=== PATIENT | female | born 1970 | race Caucasian/White ===

== ENCOUNTER 2017-11-12 03:51 | Emergency (ER) | payer MEDICARE, MEDICAID ==
[~2017-11-12] VITALS: Ht 175.3 cm; Wt 110.4 kg
[~2017-11-12 03:51] MED LIST: NO HOME MEDS; ONDA4TAB6 PO
[2017-11-12] MEDS ORDERED: ipratropium/albuterol 3ml nebule NEB ONE (04:15)
[2017-11-12] MEDS ORDERED: BENZ-38 PO (04:25)
[2017-11-12] MEDS ORDERED: ALBU8.5H8 IH (04:25)
[2017-11-12] MEDS ORDERED: AZIT-63 PO (04:25)
[2017-11-12 05:18] VITALS: BP 130/88
[2017-11-13] MEDS ORDERED: GUAI473S11 PO (13:49)
== END 2017-11-12 05:20 | disposition home or self-care (01) ==
LOC: ER 03:52
DX: J40 Bronchitis, not specified as acute or chronic (principal); R05 Cough; R06.02 Shortness of breath; K21.9 Gastro-esophageal reflux disease without esophagitis; Z87.891 Personal history of nicotine dependence; Z88.0 Allergy status to penicillin; Z88.5 Allergy status to narcotic agent; Z79.899 Other long term (current) drug therapy
CPT/HCPCS: 71046; 93005; 94640; 94760; 99284

== ENCOUNTER 2017-11-13 13:08 | Emergency (ER) | payer MEDICARE, MEDICAID ==
[~2017-11-13] VITALS: Ht 175.3 cm; Wt 81.0 kg
[~2017-11-13 13:08] MED LIST changes: +ALBU8.5H8 IH; +AZIT-63 PO; +BENZ-38 PO
[2017-11-13] MEDS ORDERED: ipratropium/albuterol 3ml nebule NEB ONE (13:20)
[2017-11-13] MEDS ORDERED: GUAI473S11 PO (13:49)
[2017-11-13 13:59] VITALS: BP 145/102
== END 2017-11-13 13:50 | disposition home or self-care (01) ==
LOC: ER 13:09
DX: R07.81 Pleurodynia (principal); R05 Cough; K21.9 Gastro-esophageal reflux disease without esophagitis; Z88.0 Allergy status to penicillin; Z88.5 Allergy status to narcotic agent; Z79.899 Other long term (current) drug therapy
CPT/HCPCS: 94640; 94760; 99282; 99283

== ENCOUNTER 2018-10-11 20:23 | Emergency (ER) | payer MEDICARE, MEDICAID ==
[~2018-10-11] VITALS: Ht 175.3 cm; Wt 84.1 kg
[~2018-10-11 20:23] MED LIST changes: -AZIT-63 PO; -BENZ-38 PO
[2018-10-11] MEDS ORDERED: ketorolac trometh inj. 60 MG/2 ML VIAL IM ONE (21:50)
[2018-10-11] MEDS ORDERED: HYDROcodone/acetaminophen 10/325mg tab PO ONE (21:50)
[2018-10-11] MEDS ORDERED: diazepam 5mg tablet PO ONE (21:50)
[2018-10-11 23:02] VITALS: BP 120/68
== END 2018-10-11 23:03 | disposition home or self-care (01) ==
LOC: ER 20:23
DX: S39.012A Strain of muscle, fascia and tendon of lower back, initial encounter (principal); K21.9 Gastro-esophageal reflux disease without esophagitis; Z88.0 Allergy status to penicillin; Z88.5 Allergy status to narcotic agent; Z79.899 Other long term (current) drug therapy; X50.3XXA Overexertion from repetitive movements, initial encounter; Y93.89 Activity, other specified; Y92.89 Other specified places as the place of occurrence of the external cause; Y99.8 Other external cause status
CPT/HCPCS: 72100; 96372; 99283; J1885

== ENCOUNTER 2018-10-13 09:51 | Emergency (ER) | payer MEDICARE, MEDICAID ==
[~2018-10-13] VITALS: Ht 175.3 cm; Wt 90.0 kg
[2018-10-13 10:32] VITALS: BP 140/77
[2018-10-13] MEDS ORDERED: LIDOcaine 5% patch TP SCH (11:35)
== END 2018-10-13 11:58 | disposition home or self-care (01) ==
LOC: ER 09:52
DX: M54.5 Low back pain (principal); M25.562 Pain in left knee; K21.9 Gastro-esophageal reflux disease without esophagitis; Z88.6 Allergy status to analgesic agent; Z88.0 Allergy status to penicillin
CPT/HCPCS: 99282

== ENCOUNTER 2020-12-16 12:51 | Emergency (ER) | payer BC, MEDICAID ==
[~2020-12-16] VITALS: Ht 172.7 cm; Wt 113.0 kg
[~2020-12-16 12:51] MED LIST changes: +CLIN150C8 PO
[2020-12-16 12:54] VITALS: BP 163/89
== END 2020-12-16 16:40 | disposition left against medical advice (07) ==
LOC: ER 12:52
DX: R13.10 Dysphagia, unspecified (principal); Z53.21 Procedure and treatment not carried out due to patient leaving prior to being seen by health care provider

== ENCOUNTER 2022-05-04 16:45 | Emergency (ER) | payer BC, MEDICAID ==
[~2022-05-04] VITALS: Ht 175.3 cm; Wt 88.6 kg
[~2022-05-04 16:45] MED LIST changes: +ALBU8.5H17 IH; -ALBU8.5H8 IH
[2022-05-04 17:54] LABS: BASOPHILS % (AUTO) 0.4 % (0-1); EOSINOPHILS # (AUTO) 0.1 X10'3 (0-0.9); EOSINOPHILS % (AUTO) 2.7 % (0-6); HEMATOCRIT 42.6 % (35.0-45.0); HEMOGLOBIN 14.1 g/dl (12.0-16.0); LYMPHOCYTES # (AUTO) 0.9 X10'3 (1.1-4.8); LYMPHOCYTES % (AUTO) 19.6 % (21-51); MEAN CORPUSCULAR HEMOGLOBIN 27.5 PG (27.0-31.0); MEAN CORPUSCULAR HGB CONC 33.2 g/dL (33.0-36.5); MEAN CORPUSCULAR VOLUME 82.8 FL (78-98); MEAN PLATELET VOLUME 7.9 FL (7.4-10.4); MONOCYTES # (AUTO) 0.6 X10'3 (0-0.9); MONOCYTES % (AUTO) 13.7 % (2-12); NEUTROPHILS % (AUTO) 63.6 % (42-75); PLATELET COUNT 236 X10'3 (140-440); RED BLOOD COUNT 5.15 X10'6 (4.20-5.60); RED CELL DISTRIBUTION WIDTH 14.6 % (11.5-14.5); WHITE BLOOD COUNT 4.6 X10'3 (4.5-11.0)
[2022-05-04 17:57] LABS: ALANINE AMINOTRANSFERASE 40 U/L (12-78); ALBUMIN 3.3 G/DL (3.4-5.0); ALBUMIN/GLOBULIN RATIO 0.9 (1.1-1.5); ALKALINE PHOSPHATASE 130 IU/L (46-116); ANION GAP 8 (8-16); ASPARTATE AMINO TRANSFERASE 43 U/L (10-37); BILIRUBIN,TOTAL 0.4 MG/DL (0.1-1.0); BLOOD UREA NITROGEN 9 MG/DL (7-18); CALCIUM 8.6 MG/DL (8.5-10.1); CHLORIDE 105 MMOL/L (99-107); CREATININE 0.75 MG/DL (0.40-0.90); GLUCOSE 97 MG/DL (70-104); POTASSIUM 3.9 MMOL/L (3.5-5.1); SODIUM 137 MMOL/L (135-145); TOTAL CARBON DIOXIDE 24.4 MMOL/L (24-32); TOTAL PROTEIN 7.1 G/DL (6.4-8.2); eGFR 81 ML/MIN
[2022-05-04] MEDS ORDERED: ketorolac trometh. 30mg/ml inj. IM ONE (21:15)
[2022-05-04 21:43] VITALS: BP 124/86
[2022-05-04] MEDS ORDERED: CEPH-585 PO (22:15)
[2022-05-04] MEDS ORDERED: TAM75C PO (22:53)
== END 2022-05-04 23:27 | disposition home or self-care (01) ==
LOC: ER 16:47
DX: B34.9 Viral infection, unspecified (principal); Z20.822 Contact with and (suspected) exposure to COVID-19; J11.1 Influenza due to unidentified influenza virus with other respiratory manifestations; R53.83 Other fatigue; R06.02 Shortness of breath; R50.9 Fever, unspecified; R05.9 Cough, unspecified; R51.9 Headache, unspecified; K21.9 Gastro-esophageal reflux disease without esophagitis; Z87.440 Personal history of urinary (tract) infections; Z88.0 Allergy status to penicillin; Z88.8 Allergy status to other drugs, medicaments and biological substances; Z79.2 Long term (current) use of antibiotics; Z79.899 Other long term (current) drug therapy
CPT/HCPCS: 36415; 71046; 80053; 85025; 87502; 87503; 87635; 96372; 99284; C9803; J1885

== ENCOUNTER 2022-09-18 03:57 | Emergency (ER) | payer BC, MEDICAID ==
[~2022-09-18] VITALS: Ht 175.3 cm; Wt 90.0 kg
[~2022-09-18 03:57] MED LIST changes: +CEPH-585 PO
[2022-09-18 04:04] VITALS: BP 131/82
[2022-09-18] MEDS ORDERED: SULF1TAB49 PO (07:24)
== END 2022-09-18 07:36 | disposition home or self-care (01) ==
LOC: ER 03:58
DX: L02.01 Cutaneous abscess of face (principal); K21.9 Gastro-esophageal reflux disease without esophagitis; Z88.0 Allergy status to penicillin; Z88.5 Allergy status to narcotic agent
CPT/HCPCS: 99283

== ENCOUNTER 2022-12-26 21:40 | Emergency (ER) | payer BC, MEDICAID ==
[~2022-12-26] VITALS: Ht 175.3 cm; Wt 93.2 kg
[2022-12-26] MEDS ORDERED: nitroGLYCERIN 0.4mg SUBLingual tab SL ONE (21:45)
[2022-12-26] MEDS ORDERED: LORazepam 2 mg/ml vial IM ONE (21:55)
[2022-12-26] MEDS ORDERED: glucagon, human recombinant 1mg kit IV ONE (22:15)
[2022-12-26] MEDS ORDERED: normal saline 1000ml 1,000 ML IV ONE (22:15)
[2022-12-26] MEDS ORDERED: LORazepam 2 mg/ml vial IV ONE (22:15)
[2022-12-26] MEDS ORDERED: ondansetron/PF 4mg/2ml inj IV ONE (22:15)
[2022-12-26 23:48] VITALS: BP 157/98
== END 2022-12-26 23:49 | disposition home or self-care (01) ==
LOC: ER 21:40
DX: T18.108A Unspecified foreign body in esophagus causing other injury, initial encounter (principal); K21.9 Gastro-esophageal reflux disease without esophagitis; Z88.0 Allergy status to penicillin; Z88.5 Allergy status to narcotic agent; Z79.899 Other long term (current) drug therapy; Z79.1 Long term (current) use of non-steroidal anti-inflammatories (NSAID)
CPT/HCPCS: 96361; 96372; 96374; 96375; 99284; J1610; J2060; J2405; J7030

== ENCOUNTER 2025-03-03 21:59 | Emergency (ER) | payer BC, MEDICAID ==
[~2025-03-03] VITALS: Ht 175.3 cm; Wt 114.6 kg
[~2025-03-03 21:59] MED LIST changes: -ALBU8.5H17 IH; +APIX5TAB3 PO; -CEPH-585 PO; -CLIN150C8 PO; +NICO-731 TOP; -NO HOME MEDS; +OMEP20CA15 PO; -ONDA4TAB6 PO
--- NOTE | 2025-03-04 01:50 | Physician Documentation ---
History of Present Illness ~ Chief Complaint: Leg Pain Stated Complaint: LEGS SWELLING Time Seen by MD: 23:29 OK to notify your PCP?: Yes Primary Medical Doctor: JAQUELINE JOHNSON IN Source: patient, RN/, RN notes reviewed Mode of Arrival: POV, Dropped Off Exam Limitations: no limitations, other HPI 54 year old female with history of pulmonary embolism presents to the emergency room for complaints of leg swelling that has been present for four days. She complains of bilateral leg swelling and states that it is greater on the right than the left. She identifies her pain as 5/10. She states she had gone to the emergency department two days ago and was prescribed Keflex. At this time she was given an ultrasound and told she has no new clots.She states she is unaware of how this began denying any recent travel. She denies any shortness of breath or chest pain. Tetanus witin 5 years: No Medication Reconciliation Allergies: Coded Allergies: Penicillins (Verified Allergy, Unknown, 03/29/24) hydromorphone (Verified Allergy, Unknown, 03/29/24) Scheduled Apixaban (Eliquis), 10 MG PO BID Cephalexin Monohydrate (Cephalexin), 1 CAP PO Q8H, (Reported) Nicotine (Nicotine Patch), 1 PATCH TOP DAILY Discontinued Medications Omeprazole (Omeprazole), 1 CAP PO DAILY Discontinued Reason: patient no longer taking Past Medical History Past Medical History: Pulmonary Embolism, Diverticulitis, GERD, UTI Past Surgical History: no surgical history Smoking Status: Current every day smoker Alcohol Use: Rarely Drug Use: none Lives with: S/O Lives In: Home Review of Systems All Other Systems at this time: Reviewed and Negative ROS As stated above in the HPI, otherwise all systems are reviewed and negative. Physical Exam Vital Signs: RN Vital Signs have been reviewed: Yes, Temperature: 98.4, Source: Oral, Heart Rate: 72, Respiratory Rate: 16, BP: 131/84, Pulse Oximetry: 96, Weight: 114.600 Oxygen Flow Rate: 0 Pulse Oximetry Reflects: adequate oxygenation Physical Exam General: The patient is well developed, well nourished, nontoxic appearing and is in no acute distress. Skin: [place], warm and dry with no rashes. HEENT: Head was normocephalic and atraumatic. Eyes - pupils equal, round, reactive to light and accommodation. Extraocular movements were intact. Conjunctivae were nonicteric. Ears - bilateral tympanic membranes were normal. The mouth and oropharynx were clear with moist mucous membranes. There were no pharyngeal exudates or erythema. Neck: Supple and nontender. There was no jugular venous distention, lymphadenopathy, thyromegaly or masses. Chest: Clear to auscultation bilaterally without wheezes, rales or rhonchi. No accessory muscle use. No dullness to percussion. Heart: Rate regular and rhythmic. S1, S2. No murmurs. Palpation of the chest wall was normal. No rubs or thrills. Abdomen: Soft, nontender and nondistended. Positive bowel sounds. No guarding or rebound. No hepatosplenomegaly or palpable masses. Extremities: Lower extremity is red hot and swollen greater on left side than right. The patient moves all extremities. Pulses were equal and symmetric. Neurologic: Cranial nerves II-XII were intact. Sensation was intact to light touch throughout. Motor strength was 5/5 in all four extremities. Deep tendon reflexes were intact in both upper and lower extremities. Psychologic: The patient was oriented to person, place and time. The patient demonstrated appropriate judgement and insight. Progress Results/Orders Results/Orders Medications Received in ER Medications (Trade) Dose Ordered Sig/Valeria Route PRN Reason Start Time Stop Time Status Last Admin Dose Admin Vancomycin HCl 250 ml @ 166 mls/hr ONCE ONCE IV 03/04/25 02:00 03/04/25 03:30 DC 03/04/25 02:28 166 MLS/HR Vital Signs 03/03/25 03/03/25 03/03/25 03/04/25 22:04 22:56 22:59 00:38 Temp 98.2 98.4 Pulse 85 80 72 Resp 16 18 16 16 B/P (MAP) 148/86 149/82 (104) 131/84 (100) Pulse Ox 96 96 96 O2 Flow Rate 0 0 0 03/04/25 03/04/25 03/04/25 01:56 04:04 06:00 Temp 98.0 Pulse 72 74 78 Resp 16 16 B/P (MAP) 128/82 (97) 126/74 (91) 128/72 (90) Pulse Ox 98 98 98 O2 Flow Rate 0 0 0 Laboratory Tests Test 03/04/25 02:30 03/04/25 03:31 White Blood Count 7.0 Red Blood Count 5.11 Hemoglobin 14.5 Hematocrit 43.3 Mean Corpuscular Volume 84.7 Mean Corpuscular Hemoglobin 28.3 Mean Corpuscular Hemoglobin Concent 33.5 Red Cell Distribution Width 14.7 H Platelet Count 273 Mean Platelet Volume 8.4 Neutrophils (%) (Auto) 58.3 Lymphocytes (%) (Auto) 28.2 Monocytes (%) (Auto) 7.7 Eosinophils (%) (Auto) 5.3 Basophils (%) (Auto) 0.5 Neutrophils # (Auto) 4.1 Lymphocytes # (Auto) 2.0 Monocytes # (Auto) 0.5 Eosinophils # (Auto) 0.4 Basophils # (Auto) 0.0 CBC Comment Sodium Level 140 Potassium Level 4.0 Chloride Level 105 Carbon Dioxide Level 29.3 Anion Gap 6 L Blood Urea Nitrogen 8 Creatinine 0.68 Estimated GFR/1.73 m2 90 BUN/Creatinine Ratio 11.8 Glucose Level 92 Lactic Acid Level 1.0 Calcium Level 9.4 Magnesium Level 2.1 Troponin I High Sensitivity 7 Albumin 3.4 Procalcitonin < 0.05 Chemistry Comments Urine Specimen Description Cln catch midstream Urine Color Yellow Urine Clarity Clear Urine pH 6.0 Urine Specific [place] 1.025 Urine Protein Negative Urine Glucose (UA) Negative Urine Ketones Negative Urine Occult Blood Negative Urine Nitrite Negative Urine Bilirubin Small Urine Urobilinogen 2.0 H Urine Leukocyte Esterase Negative Urine Culture Indicated Not ind Volume Urine Centrifuged 10 ml Urine Comment Microbiology Date/Time Source Procedure Growth Status 03/04/25 02:30 Blood Forearm Left Blood Culture - Preliminary NEGATIVE (LESS THAN 24 HOURS) Resulted EKG/XRAY/CT/US/VASC/MRI EKG : Additional Comment [facility] Test Date: 2025-03-04 Test Time: 02:00:11 Pat Name: MARICARMEN MEDINADONALDBON Department: EMERGENCY ROOM Room: 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 Tr Olvera Measurements Intervals [place] Rate: 66 P: 41 [place]: 149 QRS: 61 QRSD: 95 T: 36 QT: 404 QTc: 424 Interpretive Statements Sinus rhythm Baseline wander in lead(s) I Electronically Signed On 03-04-2025 2:07:[address] Tr Olvera Please click the below link to view image of tracing. EKG Date and Time:03/04/25199 Electronically Signed by: TR OLVERA MD Date and Time: 03/04/25206 Chest X-Ray : Additional Comments Clinical History SEPSIS Comparison None Technique: frontal chest x-ray Without Contrast MARICARMEN LUNDY, [id number] Findings: Heart - normal lungs - no consolidation. bones - no acute fracture. Other- Impression: 1. No acute cardiopulmonary disease This report was electronically signed by Sveta Anthony MD on 03/04/2025 2:22:11 AM. Electronically Signed by:SVETA ANTHONY MD Date & Time: 03/04/25223 Departure Time of Disposition: 06:12 Disposition: 01 HOME / SELF CARE / HOMELESS Impression: Primary Impression: Bilateral lower leg cellulitis Additional Impressions: History of pleural effusion Peripheral edema Condition: Stable Discharge Instructions: Cellulitis, Adult, [id number] Referrals: NO PRIMARY CARE PROVIDER (PCP) Signature Scribe Signature: Scribed for Tr Olvera MD by Barbara Giles . 03/04/25 02:05 Attestation: The note accurately reflects work and decisions made by me.Tr Olvera MD 03/04/25 01:50 TR OLVERA MD March 04, 2025 01:50 BARBARA ALLEN March 04, 2025 02:05
--- NOTE | 2025-03-04 02:03 | ELECTROCARDIOGRAPH REPORT ---
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 Kathryn Ayers Measurements Intervals [place] Rate: 66 P: 41 [place]: 149 QRS: 61 QRSD: 95 T: 36 QT: 404 QTc: 424 Interpretive Statements Sinus rhythm Baseline wander in lead(s) I Electronically Signed On 03-04-2025 2:07:[address] Kathryn Ayers Please click the below link to view image of tracing.
--- NOTE | 2025-03-04 02:24 | RADIOLOGY REPORT ---
Clinical History SEPSIS Comparison None Technique: frontal chest x-ray Without Contrast MARICARMEN LUNDY, [id number] Findings: Heart - normal lungs - no consolidation. bones - no acute fracture. Other- Impression: 1. No acute cardiopulmonary disease This report was electronically signed by Sveta High MD on 03/04/2025 2:22:11 AM.
[2025-03-04] MEDS: vancomycin/NS 1 GM ADD-VANTAGE 250 ML IV ONE (02:28)
[2025-03-04] MEDS ORDERED: CEPH500C2 PO (02:42)
[2025-03-04 02:54] LABS: BASOPHILS % (AUTO) 0.5 % (0-1); EOSINOPHILS # (AUTO) 0.4 X10'3 (0-0.9); EOSINOPHILS % (AUTO) 5.3 % (0-6); HEMATOCRIT 43.3 % (35.0-45.0); HEMOGLOBIN 14.5 g/dl (12.0-16.0); LYMPHOCYTES % (AUTO) 28.2 % (21-51); MEAN CORPUSCULAR HEMOGLOBIN 28.3 PG (27.0-31.0); MEAN CORPUSCULAR HGB CONC 33.5 g/dL (33.0-36.5); MEAN CORPUSCULAR VOLUME 84.7 FL (78-98); MEAN PLATELET VOLUME 8.4 FL (7.4-10.4); MONOCYTES # (AUTO) 0.5 X10'3 (0-0.9); MONOCYTES % (AUTO) 7.7 % (2-12); NEUTROPHILS # (AUTO) 4.1 X10'3 (1.8-7.7); NEUTROPHILS % (AUTO) 58.3 % (42-75); PLATELET COUNT 273 X10'3 (140-440); RED BLOOD COUNT 5.11 X10'6 (4.20-5.60); RED CELL DISTRIBUTION WIDTH 14.7 % (11.5-14.5)
[2025-03-04 03:04] LABS: ALBUMIN 3.4 G/DL (3.4-5.0); ANION GAP 6 (8-16); BLOOD UREA NITROGEN 8 MG/DL (7-18); BUN/CREATININE RATIO 11.8 (10.0-20.0); CALCIUM 9.4 MG/DL (8.5-10.1); CHLORIDE 105 MMOL/L (99-107); CREATININE 0.68 MG/DL (0.40-0.90); GLUCOSE 92 MG/DL (70-104); MAGNESIUM 2.1 MG/DL (1.5-2.4); SODIUM 140 MMOL/L (135-145); TOTAL CARBON DIOXIDE 29.3 MMOL/L (24-32); eCRCL 97 ML/MIN; eGFR 90 ML/MIN
[2025-03-04] MEDS ORDERED: iohexol 350MG/ML 100ml bottle IV ONE (03:21)
[2025-03-04 04:13] LABS: BILIRUBIN,URINE SMALL (Neg); CLARITY,URINE CLEAR (Clear); COLOR,URINE YELLOW (Yellow); GLUCOSE, URINE NEGATIVE (Neg); KETONES,URINE NEGATIVE (Neg); LEUKOCYTE ESTERASE ,URINE NEGATIVE (Neg); NITRITES, URINE NEGATIVE (Neg); OCCULT BLOOD,URINE NEGATIVE (Neg); PROTEIN,URINE NEGATIVE (Neg)
[2025-03-04 04:15] LABS: UA COLLECTION TYPE CLN CATCH MIDSTREAM
--- NOTE | 2025-03-04 05:16 | RADIOLOGY REPORT ---
INDICATION: dependent edema COMPARISON: None TECHNIQUE: CT of the bilateral lower extremity was performed with contrast. Volume transverse images were obtained and reconstructed in multiple planes using bone and soft tissue algorithms. Radiation Dose Information: CT Dose: CTDI volume is 20.0 mGy. Dose-length product is 1234.6 mGy*cm FINDINGS: The alignment is normal. The joint spaces are normal. There is no fracture, dislocation or aggressive osseous lesion. There is no joint effusion. Prominent varicosities are present in bilateral thighs. 1.5 cm prominent lymph node in the inferior right medial groin/ proximal thigh ; indeterminate and po ssibly reactive. IMPRESSION: No acute or suspicious findings. Prominent varicosities are present in bilateral thighs. 1.5 cm prominent lymph node in the inferior right medial groin/ proximal thigh ; indeterminate and po ssibly reactive.
[2025-03-04] MEDS ORDERED: DOXY-1 PO (06:13)
[2025-03-04 06:14] VITALS: BP 128/78; PULSE 82; RESP 16; TEMP 98; O2SAT 98
[2025-03-04] MEDS: DOXYCYCLINE 100MG CAPSULE PO STA (06:22)
== END 2025-03-04 06:23 | disposition home or self-care (01) ==
LOC: ER 21:59
DX: L03.115 Cellulitis of right lower limb (principal); L03.116 Cellulitis of left lower limb; K21.9 Gastro-esophageal reflux disease without esophagitis; F17.200 Nicotine dependence, unspecified, uncomplicated; Z88.0 Allergy status to penicillin; Z88.5 Allergy status to narcotic agent
CPT/HCPCS: 36415; 71045; 73701; 80048; 81003; 83605; 83735; 84145; 84484; 85025; 87040; 93005; 96365; 96366; 99285; J3370; Q9967

== ENCOUNTER 2025-04-16 09:20 | Emergency (ER) | payer BC, MEDICAID ==
[~2025-04-16] VITALS: Ht 175.3 cm; Wt 115.4 kg
[~2025-04-16 09:20] MED LIST changes: +CEPH500C2 PO; -OMEP20CA15 PO
[2025-04-16 09:26] VITALS: TEMP 98.7
[2025-04-16 10:13] LABS: BILIRUBIN,URINE NEGATIVE (Neg); CLARITY,URINE CLEAR (Clear); COLOR,URINE YELLOW (Yellow); GLUCOSE, URINE NEGATIVE (Neg); KETONES,URINE NEGATIVE (Neg); LEUKOCYTE ESTERASE ,URINE NEGATIVE (Neg); OCCULT BLOOD,URINE TRACE-INTACT (Neg); PROTEIN,URINE NEGATIVE (Neg); UROBILINOGEN,URINE 0.2 E.U/dL (0.2-1.0)
[2025-04-16 10:19] LABS: BASOPHILS # (AUTO) 0.1 X10'3 (0-0.2); EOSINOPHILS # (AUTO) 0.3 X10'3 (0-0.9); EOSINOPHILS % (AUTO) 4.1 % (0-6); HEMATOCRIT 45.1 % (35.0-45.0); HEMOGLOBIN 15.6 g/dl (12.0-16.0); LYMPHOCYTES % (AUTO) 30.6 % (21-51); MEAN CORPUSCULAR HEMOGLOBIN 28.8 PG (27.0-31.0); MEAN CORPUSCULAR HGB CONC 34.5 g/dL (33.0-36.5); MEAN CORPUSCULAR VOLUME 83.5 FL (78-98); MEAN PLATELET VOLUME 8.4 FL (7.4-10.4); MONOCYTES # (AUTO) 0.4 X10'3 (0-0.9); MONOCYTES % (AUTO) 6.2 % (2-12); NEUTROPHILS # (AUTO) 3.7 X10'3 (1.8-7.7); NEUTROPHILS % (AUTO) 58.1 % (42-75); PLATELET COUNT 236 X10'3 (140-440); RED BLOOD COUNT 5.41 X10'6 (4.20-5.60); RED CELL DISTRIBUTION WIDTH 14.5 % (11.5-14.5); WHITE BLOOD COUNT 6.4 X10'3 (4.5-11.0)
[2025-04-16 10:21] LABS: ALBUMIN 3.5 G/DL (3.4-5.0); ANION GAP 10 (8-16); BLOOD UREA NITROGEN 10 MG/DL (7-18); BUN/CREATININE RATIO 12.5 (10.0-20.0); C-REACTIVE PROTEIN 0.51 MG/DL (0.0-0.5); CALCIUM 9.5 MG/DL (8.5-10.1); CHLORIDE 106 MMOL/L (99-107); GLUCOSE 90 MG/DL (70-104); POTASSIUM 4.1 MMOL/L (3.5-5.1); SODIUM 144 MMOL/L (135-145); TOTAL CARBON DIOXIDE 28.3 MMOL/L (24-32); eCRCL 82 ML/MIN; eGFR 74 ML/MIN
[2025-04-16 10:22] LABS: UA COLLECTION TYPE CLN CATCH MIDSTREAM
[2025-04-16 10:28] LABS: WBC,URINE 0-4 /HPF (0-4)
[2025-04-16 10:29] LABS: BACTERIA,URINE 1+ /HPF (Neg); RBC,URINE 0-2 /HPF (0-2); SQUAMOUS EPITHELIAL CELL,UR MANY /LPF (FEW)
[2025-04-16 10:30] LABS: MUCUS STRANDS NONE SEEN /LPF (Neg)
[2025-04-16 10:33] LABS: TRANSITIONAL EPI CELLS,URINE FEW /HPF; YEAST FEW /HPF (NEGATIVE)
[2025-04-16 10:58] LABS: NITRITES, URINE NEGATIVE (Neg)
--- NOTE | 2025-04-16 11:14 | Physician Documentation ---
History of Present Illness ~ Chief Complaint: Wound Stated Complaint: CELLULITIS IN FEET Time Seen by MD: 10:12 Primary Medical Doctor: JAQUELINE JOHNSON IN Mode of Arrival: POV, Ambulatory HPI Patient is seen today with concern for recurrent cellulitis of the lower extremities. Patient states that she is having chronic swelling of her bilateral lower extremities and was treated about a month ago for cellulitis. Patient states she is still having swelling of her lower extremities in his concerned for some pain of her lower extremities and she is concerned for recurrent cellulitis. Patient denies any fevers or chills or chest pain or shortness of breath or abdominal pain or nausea, vomiting, diarrhea. Patient has no other concern or complaint at this time. Tetanus within 5 years?: No Medication Reconciliation Allergies: Coded Allergies: Penicillins (Verified Allergy, Unknown, 04/16/25) hydromorphone (Verified Allergy, Unknown, 04/16/25) Scheduled Apixaban (Eliquis), 10 MG PO BID Cephalexin Monohydrate (Cephalexin), 1 CAP PO Q8H, (Reported) Nicotine (Nicotine Patch), 1 PATCH TOP DAILY Past Medical History Past Medical History: Pulmonary Embolism, Diverticulitis, GERD, UTI Past Surgical History: no surgical history Alcohol Use: Rarely Drug Use: none Lives with: S/O Lives In: Home Review of Systems Constitutional: Denies: chills, fever, weakness Eyes: Denies: pain, blurred vision ENT: Denies: ear pain, nose pain, throat pain, mouth pain Respiratory: Denies: cough, shortness of breath Cardiovascular: Denies: chest pain, palpitations Gastrointestinal: Denies: abdominal pain, nausea, vomiting Genitourinary: Denies: burning, dysuria Female Genitalia: Denies: vaginal discharge, pelvic pain Neurological: Denies: headache, dizziness Musculoskeletal: Denies: pain, swelling Integumentary: Denies: rash, lesions Allergic/Immunologic: Denies: hives, itching Hematologic/Lymphatic: Denies: no symptoms reported Psychiatric: Denies: depression, anxiety Physical Exam Vital Signs: Temperature: 98.7, Source: Temporal, Heart Rate: 74, Respiratory Rate: 16, BP: 160/100, Pulse Oximetry: 98, Weight: 115.400 Oxygen Flow Rate: 0 Physical Exam General: Awake and Alert, no acute distress. HEENT: Conjunctiva pink, Sclera clear, Mucus Membranes moist. Neck: Supple without masses and tenderness. Resp: Unlabored. Lungs clear to auscultation bilaterally. Heart: Regular Rate and rhythm, normal S1 and S2 without murmur, rub or gallop. Abdomen: Soft and non tender no organomegaly Extremities: No cyanosis,clubbing. Patient does have bilateral lower extremity 2+ pitting edema with chronic appearing hemosiderin deposits bilaterally. I do not appreciate any warmth or erythema and no sign of cellulitis. Skin: Warm and Dry. Progress Results/Orders Results/Orders Orders - MARY CARDONA PAC Culture Blood (04/16/25 09:29) Completed Orders - MARY CARDONA PAC Cbc/Diff (04/16/25 09:29) Procalcitonin (04/16/25 09:29) BMP (04/16/25 09:29) Lacticsepsis (04/16/25 09:29) C-Reactive Protein (04/16/25 09:29) Ua W/Microscopic, Cult If Ind (04/16/25 10:05) Vital Signs 04/16/25 04/16/25 09:26 10:20 Temp 98.7 Pulse 84 74 Resp 18 16 B/P (MAP) 168/93 160/100 (120) Pulse Ox 96 98 O2 Flow Rate 0 Laboratory Tests Test 04/16/25 09:57 04/16/25 10:05 White Blood Count 6.4 Red Blood Count 5.41 Hemoglobin 15.6 Hematocrit 45.1 H Mean Corpuscular Volume 83.5 Mean Corpuscular Hemoglobin 28.8 Mean Corpuscular Hemoglobin Concent 34.5 Red Cell Distribution Width 14.5 Platelet Count 236 Mean Platelet Volume 8.4 Neutrophils (%) (Auto) 58.1 Lymphocytes (%) (Auto) 30.6 Monocytes (%) (Auto) 6.2 Eosinophils (%) (Auto) 4.1 Basophils (%) (Auto) 1.0 Neutrophils # (Auto) 3.7 Lymphocytes # (Auto) 2.0 Monocytes # (Auto) 0.4 Eosinophils # (Auto) 0.3 Basophils # (Auto) 0.1 CBC Comment Sodium Level 144 Potassium Level 4.1 Chloride Level 106 Carbon Dioxide Level 28.3 Anion Gap 10 Blood Urea Nitrogen 10 Creatinine 0.80 Estimated GFR/1.73 m2 74 BUN/Creatinine Ratio 12.5 Glucose Level 90 Lactic Acid Level 1.3 Calcium Level 9.5 C-Reactive Protein 0.51 H Albumin 3.5 Procalcitonin < 0.05 Chemistry Comments Urine Specimen Description Cln catch midstream Urine Color Yellow Urine Clarity Clear Urine pH 6.0 Urine Specific [place] 1.025 Urine Protein Negative Urine Glucose (UA) Negative Urine Ketones Negative Urine Occult Blood Trace-intact Urine Nitrite Negative Urine Bilirubin Negative Urine Urobilinogen 0.2 Urine Leukocyte Esterase Negative Urine RBC 0-2 Urine WBC 0-4 Urine Squamous Epithelial Cells Many Urine Transitional Epithelial Cells Few Urine Bacteria 1+ Urine Mucus None seen Urine Yeast Few Urine Culture Indicated Not ind Volume Urine Centrifuged 10 ml Urine Comment Medical Decision Making Findings Patient is seen today with concern for recurrent cellulitis of the lower extr emities. Patient states that she is having chronic swelling of her bilateral lower extremities and was treated about a month ago for cellulitis. Patient states she is still having swelling of her lower extremities in his concerned for some pain of her lower extremities and she is concerned for recurrent cellulitis. Patient denies any fevers or chills or chest pain or shortness of breath or abdominal pain or nausea, vomiting, diarrhea. Patient has no other concern or complaint at this time. Patient's labs returned largely unremarkable with normal white count. Patient's history and physical exam findings and lab findings do not indicate any sign of infection or cellulitis. Patient will follow up with primary care in 3-5 days for re-evaluation. Patient given short prescription for diuretic Lasix, potassium tablets, and spironolactone. Patient will follow up in two weeks for repeat lab draw with her primary care provider. Departure Disposition: HOME / SELF CARE / HOMELESS Impression: Primary Impression: Bilateral lower extremity edema Condition: Stable Discharge Instructions: Peripheral Edema Additional Instructions: Patient's labs returned largely unremarkable with normal white count. Patient's history and physical exam findings and lab findings do not indicate any sign of infection or cellulitis. Patient will follow up with primary care in 3-5 days for re-evaluation. Patient given short prescription for diuretic Lasix, potassium tablets, and spironolactone. Patient will follow up in two weeks for repeat lab draw with her primary care provider. Referrals: NO PRIMARY CARE PROVIDER (PCP) Prescriptions Potassium Chloride (Klor-Con 8) 8 Meq Tablet.er 1 TAB PO DAILY for 15 Days, #15 TAB 0 Refills Prov: MARY CARDONA 04/16/25 Spironolactone (Spironolactone) 25 Mg Tablet 1 TAB PO DAILY for 15 Days, #15 TAB 0 Refills Prov: MARY CARDONA 04/16/25 Furosemide (LASIX) 20 Mg Tablet 1 TAB PO DAILY for 15 Days, #15 TAB 0 Refills Prov: MARY CARDONA 04/16/25 Signature Scribe Signature: No scribe Attestation: No scribe MARY CARDONA Apr 16, 2025 11:14
[2025-04-16] MEDS ORDERED: FURO-150 PO (11:18)
[2025-04-16] MEDS ORDERED: POTA8TAB69 PO (11:18)
[2025-04-16] MEDS ORDERED: SPIR25TA5 PO (11:18)
[2025-04-16 11:20] VITALS: BP 174/87; PULSE 74; RESP 16; O2SAT 98
== END 2025-04-16 11:27 | disposition home or self-care (01) ==
LOC: ER 09:21
DX: R60.0 Localized edema (principal); Z88.0 Allergy status to penicillin; Z88.5 Allergy status to narcotic agent
CPT/HCPCS: 36415; 80048; 81001; 83605; 84145; 85025; 86140; 87040; 99283; J7030